=== PATIENT | female | born 1980 | race Caucasian/White ===

== ENCOUNTER 2016-08-28 11:04 | Emergency (ER) | payer OTHER ==
[~2016-08-28] VITALS: Ht 170.2 cm; Wt 86.4 kg
[~2016-08-28 11:04] MED LIST: ARIP5TAB9 PO; LEVO125 PO
[2016-08-28] MEDS ORDERED: ARIP10TA14 PO (12:14)
[2016-08-28] MEDS ORDERED: HYDROCODONE/ACETAMINOPHEN 10-325 MG TABLET PO ONE (12:15)
[2016-08-28 12:43] LABS: APPEARANCE,URINE CLOUDY (CLEAR); GLUCOSE, URINE (UA) NEGATIVE (NEGATIVE); KETONES,URINE NEGATIVE (NEGATIVE); LEUKOCYTE ESTERASE ,URINE LARGE (NEGATIVE); OCCULT BLOOD,URINE MODERATE (NEGATIVE); PROTEIN,URINE POS 1+ (NEGATIVE)
[2016-08-28 12:49] LABS: ADD UA MICROSCOPIC YES
[2016-08-28 12:50] LABS: WBC,URINE 51-100 /HPF (0-5)
[2016-08-28 12:52] LABS: SQUAMOUS EPITHELIAL CELL,UR Few /LPF (None Seen)
[2016-08-28 17:19] VITALS: BP 124/74
== END 2016-08-28 17:20 | disposition home or self-care (01) ==
LOC: EMS 11:06
DX: N39.0 Urinary tract infection, site not specified (principal); E03.9 Hypothyroidism, unspecified; F31.9 Bipolar disorder, unspecified; Z88.0 Allergy status to penicillin
CPT/HCPCS: 74176; 87086; 99285